=== PATIENT | female | born 1945 | race American Indian/Alaskan Native ===

== ENCOUNTER 2018-05-31 13:35 | Emergency (ER) | payer MEDICARE, OTHER ==
[2018-05-31 14:03] VITALS: RESP 20; TEMP 97.9
[2018-05-31 14:46] VITALS: BP 175/84; PULSE 55; O2SAT 100
--- NOTE | 2018-05-31 15:14 | C.PDOC ---
History Of Present Illness 72-year-old female, presents to the emergency department with complaints of two- day history of painful rash on right back that extends to right arm. She denies any discharge, erythema, nausea/vomiting, fever or any other associated symptoms. no other complaints at this time. Time Seen by Provider: 05/31/18 14:07 Chief Complaint (Nursing): Abnormal Skin Integrity History Per: Patient History/Exam Limitations: no limitations Current Symptoms Are (Timing): Still Present Past Medical History Reviewed: Historical Data, Nursing Documentation, Vital Signs Vital Signs: Last Vital Signs Temp 97.9 F 05/31/18 13:58 Pulse 55 L 05/31/18 14:46 Resp 20 05/31/18 14:46 BP 175/84 H 05/31/18 14:46 Pulse Ox 100 05/31/18 14:46 - Medical History PMH: Asthma, HIV, HTN Family History: States: No Known Family Hx - Social History Hx Tobacco Use: No Hx Alcohol Use: No Hx Substance Use: Yes - Immunization History Hx Tetanus Toxoid Vaccination: Yes Hx Influenza Vaccination: Yes (2018) Hx Pneumococcal Vaccination: Yes Review Of Systems Constitutional: Negative for: Fever, Chills Respiratory: Negative for: Cough, Shortness of Breath Skin: Positive for: Rash Neurological: Negative for: Weakness, Numbness, Headache, Dizziness Physical Exam - Physical Exam Appears: Non-toxic, No Acute Distress Skin: Warm, Dry, Rash (vesicular rash in dermatomal distribution along T-2 dermatome on right side. No erythema, discharge.) Head: Atraumatic, Normacephalic Eye(s): bilateral: Normal Inspection Nose: Normal Oral Mucosa: Moist Lips: Normal Appearing Neck: Normal ROM Chest: Symmetrical Cardiovascular: Rhythm Regular, No Murmur Respiratory: Normal Breath Sounds, No Accessory Muscle Use Gastrointestinal/Abdominal: Soft, No Tenderness Extremity: Normal ROM, No Deformity Neurological/Psych: Oriented x3, Normal Speech ED Course And Treatment O2 Sat by Pulse Oximetry: 100 Pulse Ox Interpretation: Normal (RA) Disposition - Disposition Referrals: Eduardo Zimmerman MD [Medical Doctor] - Disposition: HOME/ ROUTINE Disposition Time: 15:14 Condition: STABLE Additional Instructions: Follow up with the medical doctor within 1-2 days. return if worsened. Prescriptions: Acetaminophen [Tylenol] 325 mg PO Q6 PRN #30 tab PRN Reason: Pain, Mild (1-3) Acyclovir [Zovirax] 800 mg PO 5XD #34 tab Lidocaine/Aloe Vera [Aloe-Lidocaine 0.5% Gel] 1 gm TP BID #1 gel..gram. predniSONE [Prednisone] 20 mg PO BID #10 tab Instructions: Shingles (DC) Forms: [employer] ([place]er) - Clinical Impression Clinical Impression: Herpes zoster - Scribe Statement The provider has reviewed the documentation as recorded by the Scribe (Cassi Conn) All medical record entries made by the Scribe were at my direction and personally dictated by me. I have reviewed the chart and agree that the record accurately reflects my personal performance of the history, physical exam, medical decision making, and the department course for this patient. I have also personally directed, reviewed, and agree with the discharge instructions and disposition.
== END 2018-05-31 15:29 | disposition home or self-care (01) ==
LOC: C.ER 13:35
DX: B02.9 Zoster without complications (principal); I10 Essential (primary) hypertension